=== PATIENT | male | born 1970 | race Caucasian/White ===

== ENCOUNTER 2016-06-03 01:16 | Inpatient (IN) | payer OTHER ==
[2016-06-03] MEDS ORDERED: KETOROLAC TROMETHAMINE 30 MG/1 ML VIAL ONE (01:30)
[2016-06-03] MEDS ORDERED: ONDANSETRON 4 MG/2 ML VIAL ONE (01:30)
--- NOTE | 2016-06-03 01:30 | PDOC ---
History of Present Illness - General Stated Complaint: ABD PAIN, VOMITING Time Seen by Provider: 06/03/16 01:23 - History of Present Illness Initial Comments: 06/03/16 01:41 CHIEF COMPLAINT: R abdominal pain HISTORY OF PRESENT ILLNESS: 45 yo M with hx of kidney stones presents to ED with pain to R abdomen/flank that began one hour prior to arrival. Patient reports that he vomited one time on arrival to ED. Patient states he has a history of kidney stones and was most recently diagnosed with one two years ago. He states that he has an appointment with his urologist, Dr. Jose Armando Bernard tomorrow. He reports that earlier today when he was urinating he did notice some dark blood in his urine, and that this pain feels like a previous kidney stone. No recent travel or sick contacts. PAST MEDICAL HISTORY: Denies past medical history FAMILY HISTORY: Denies SOCIAL HISTORY: Denies tobacco, alcohol, illicit drug use. SURGICAL HISTORY: Denies ALLERGIES: No known drug allergies REVIEW OF SYSTEMS General/Constitutional: Denies fever or chills. Denies weakness, weight change. HEENT: Denies change in vision. Denies ear pain or discharge. Denies sore throat. Cardiovascular: Denies chest pain or shortness of breath. Respiratory: Denies cough, wheezing, or hemoptysis. Gastrointestinal: One episode of vomiting. diarrhea or constipation. Denies rectal bleeding. Genitourinary: Hematuria, difficulty with urination. Musculoskeletal: Denies joint or muscle swelling or pain. Denies neck or back pain. Skin and breasts: Denies rash or easy bruising. Neurologic: Denies headache, vertigo, loss of consciousness, or loss of sensation. PHYSICAL EXAM General Appearance: Well-appearing, appropriately dressed. No apparent distress , no intoxication. HEENT: EOMI, PERRLA, normal ENT inspection, normal voice, TMs normal, pharynx normal. No conjunctival pallor. No photophobia, scleral icterus. Neck: Supple. Trachea midline. No tenderness, rigidity, carotid bruit, stridor , lymphadenopathy, or thyromegaly. Respiratory/Chest: Lungs CTAB. No shortness of breath, chest tenderness, respiratory distress, accessory muscle use. No crackles, rales, rhonchi, stridor , wheezing, dullness Cardiovascular: RRR. S1, S2. No JVD, murmur, bradycardia, tachycardia. Vascular Pulses: Dorsalis-Pedis (R): 2+, Dorsalis-Pedis (L): 2+ Gastrointestinal/Abdominal: Normal bowel sounds. Abdomen soft, non-distended. No tenderness or rebound tenderness. No organomegaly, pulsatile mass, guarding , hernia, hepatomegaly, splenomegaly. Musculoskeletal/Extremities: R CVA tenderness. Normal inspection. FROM of all extremities, normal capillary refill. Pelvis Stable. No CVA tenderness. No tenderness to extremities, pedal edema, swelling, erythema or deformity. Integumentary: Appropriate color, dry, warm. No cyanosis, erythema, jaundice or rash Neurologic: head piece assembler II-XII intact. Fully oriented, alert. Appropriate mood/affect. Motor strength 5/5. No appreciable EOM palsy, facial droop or sensory deficit. 06/03/16 01:58 Past History - Past Medical History Allergies/Adverse Reactions: Allergies Allergy/AdvReac Type Severity Reaction Status Date / Time No Known Allergies Allergy Verified 06/03/16 01:33 Home Medications: Ambulatory Orders NK [No Known Home Medication] 06/03/16 ED Treatment Course - LABORATORY CBC & Chemistry Diagram: 06/03/16 01:30 06/03/16 01:30 Medical Decision Making - Medical Decision Making 06/03/16 02:57 45 yo M with hx of kidney stones presents to ED with pain to R abdomen/flank that began one hour prior to arrival. Patient reports that he vomited one time on arrival to ED. -IVF -30 mg Toradol IV -UA, UCx -Spiral CT Patient reassessed; still c/o of pain after administration of Toradol. -4 mg morphine IV Labs: WBC 18.5, UA: +blood CT results: Findings: The lung bases are clear. Hepatic steatosis is noted with sparing around the gallbladder fossa. The upper abdominal viscera are otherwise normal unenhanced appearance. The adrenal glands are unremarkable. Nonobstructing calculi are noted in both kidneys. The left kidney is otherwise unremarkable. There is mild fullness of the right renal collecting system and proximal ureter. An obstructing 5 x 3 mm calculus is present in the proximal right ureter (image 89). The gastrointestinal tract does not appear obstructed. No thickened or dilated bowel is seen. Colonic diverticulosis is noted without evidence of diverticulitis. The appendix is not identified. No cecal thickening or pericecal inflammatory changes are seen. There is no mesenteric infiltration. The urinary bladder, prostate and seminal vesicles are unremarkable. No abdominal or pelvic adenopathy is seen. No lytic or blastic destructive osseous lesions are seen. Impression: No inflammatory process identified in the abdomen or pelvis. No abdominal mass, adenopathy or collection seen. Read by Joshua Plasencia M.D. Patient continues to c/o pain -4 mg morphine IV Patient continues to c/o pain -0.5 mg Dilaudid IV Will admit to hospitalist for intractable pain secondary to kidney stones and for urology consult in AM. Discussed case with hospitalist attending MD Lindsey, who accepts patient to inpatient services. *DC/Admit/Observation/Transfer Diagnosis at time of Disposition: Renal calculus or stone - Discharge Dispostion Admit: Yes
[2016-06-03] MEDS ORDERED: ONDANSETRON 4 MG/2 ML VIAL IVPUSH ONE (01:33)
[2016-06-03] MEDS ORDERED: KETOROLAC TROMETHAMINE 30 MG/1 ML VIAL IVPUSH ONE (01:34)
[2016-06-03 01:41] VITALS: BMI 35.4
[2016-06-03 01:48] LABS: EOSINOPHIL 10.8 % (0-4.5); MCH 27.1 pg (25.7-33.7); MCHC 32.9 g/dl (32.0-35.9); MEAN CELL VOLUME 82.3 fl (80-96); MEAN PLT VOLUME 8.3 fl (7.5-11.1); NEUTROPHILS 49.6 % (42.8-82.8); PLATELET COUNT 260 K/MM3 (134-434); RDW 14.2 % (11.9-15.9); WHITE BLOOD COUNT 18.5 K/mm3 (4.0-10.0)
[2016-06-03] MEDS ORDERED: morphine CARPU-JECT 4 MG/1 ML DISP.SYRIN ONE ×4 (01:53→09:47)
[2016-06-03] MEDS ORDERED: morphine CARPU-JECT 4 MG/1 ML DISP.SYRIN IVPUSH ONE ×2 (01:56→02:56)
[2016-06-03 02:20] LABS: CREATININE 1.1 mg/dL (0.7-1.3)
[2016-06-03 02:33] LABS: URINE APPEARANCE SLCLOUDY; URINE BILIRUBIN NEGATIVE (NEGATIVE); URINE GLUCOSE (UA) 1+ (NEGATIVE); URINE KETONE NEGATIVE (NEGATIVE); URINE NITRITE NEGATIVE (NEGATIVE); URINE UROBILINOGEN NEGATIVE E.U./dl (0.2-1.0)
[2016-06-03 02:47] LABS: URINE BLOOD 3+ (NEGATIVE); URINE LEUK ESTERASE TRACE (NEGATIVE); URINE PROTEIN 1+ (NEGATIVE)
[2016-06-03 02:49] LABS: URINE COLOR YELLOW; URINE RBC 1420 /hpf (0-3); URINE WBC 11 /hpf (3-5)
[2016-06-03] MEDS ORDERED: TAMSULOSIN HCL 0.4 MG CAP.ER.24H (FP) PO ONE ×2 (02:49→10:34)
--- NOTE | 2016-06-03 02:54 | PDOC ---
*Physical Exam - Vital Signs Last Vital Signs Temp Pulse Resp BP Pulse Ox 98.1 F 74 26 H 145/104 99 06/03/16 01:39 06/03/16 01:39 06/03/16 01:39 06/03/16 01:39 06/03/16 01:39 ED Treatment Course - LABORATORY CBC & Chemistry Diagram: 06/03/16 07:20 06/03/16 07:20 - ADDITIONAL ORDERS Additional order review: Laboratory Results 06/03/16 06/03/16 02:28 01:30 Sodium 141 Potassium 4.1 Chloride 102 Carbon Dioxide 27 Anion Gap 12 BUN 16 Creatinine 1.1 Random Glucose 165 H Calcium 9.0 Urine Color Yellow Urine Appearance Slcloudy Urine pH 8.0 Ur Specific [place] 1.014 Urine Protein 1+ H Urine Glucose (UA) 1+ H Urine Ketones Negative Urine Blood 3+ H Urine Nitrite Negative Urine Bilirubin Negative Urine Urobilinogen Negative Ur Leukocyte Esterase Trace H Urine RBC 1420 Urine WBC 11 06/03/16 01:30 RBC 5.50 MCV 82.3 MCHC 32.9 RDW 14.2 MPV 8.3 Neutrophils % 49.6 Lymphocytes % 30.9 Monocytes % 7.7 Eosinophils % 10.8 H Basophils % 1.0 - Medications Given in the ED: ED Medications Discontinued Medications Generic Name Dose Route Start Last Admin Trade Name Susan PRN Reason Stop Dose Admin Ketorolac Tromethamine 30 mg 06/03/16 01:34 06/03/16 01:34 Toradol Injection - IVPUSH 06/03/16 01:35 30 mg NOW ONE Administration Morphine Sulfate 4 mg 06/03/16 01:56 06/03/16 01:57 Morphine Injection - IVPUSH 06/03/16 01:57 4 mg NOW ONE Administration Ondansetron HCl 4 mg 06/03/16 01:33 06/03/16 01:34 Zofran Injection IVPUSH 06/03/16 01:34 4 mg NOW ONE Administration Medical Decision Making - Medical Decision Making 06/03/16 02:54 agree with care from ANUM Ochoa *DC/Admit/Observation/Transfer Diagnosis at time of Disposition: Renal calculus or stone
[2016-06-03] MEDS ORDERED: TAMSULOSIN HCL 0.4 MG CAP.ER.24H (FP) ONE ×2 (03:06→09:22)
[2016-06-03] MEDS ORDERED: HYDROmorphone HCL CARPU-JECT 1 MG/1 ML DISP.SYRIN IVPUSH ONE ×2 (03:19→04:01)
[2016-06-03] MEDS ORDERED: HYDROmorphone HCL CARPU-JECT 1 MG/1 ML DISP.SYRIN ONE (03:22)
--- NOTE | 2016-06-03 03:51 | PN ---
<Alma Delia Lindsey - Last Filed: 06/03/16 03:51> Teaching Attending Note Name of Resident: Oscar Llanes ATTENDING PHYSICIAN STATEMENT I saw and evaluated the patient. I reviewed the resident's note and discussed the case with the resident. I agree with the resident's findings and plan as documented. SUBJECTIVE: OBJECTIVE: ASSESSMENT AND PLAN: <Nghia Pireshel - Last Filed: 06/03/16 04:36> Teaching Attending Note ATTENDING PHYSICIAN STATEMENT I saw and evaluated the patient. I reviewed the resident's note and discussed the case with the resident. I agree with the resident's findings and plan as documented. SUBJECTIVE: The patient is a 45 yo M with a PMHx of nephrolithiasis presents to the ED with R flank pain and abdominal pain approximately one hour prior to arrival to the ED.Patient also had one episode of vomiting. Patient was supposed to see Dr. Bernard tomorrow. Patient also notes dark blood upon urination earlier today OBJECTIVE: Last Vital Signs Temp Pulse Resp BP Pulse Ox 98.1 F 76 22 153/102 96 06/03/16 01:39 06/03/16 03:18 06/03/16 03:18 06/03/16 03:18 06/03/16 03:18 GEN: NAD HEENT: NCAT, PERRL CARD: RRR, S1 S2 RESP: CTAB ABD: NT, BWS x4. + R CVA tenderness. EXT: - CCE CBCD WBC 18.5 K/mm3 (4.0-10.0) H 06/03/16 01:30 RBC 5.50 M/mm3 (4.00-5.60) 06/03/16 01:30 Hgb 14.9 GM/dL (11.7-16.9) 06/03/16 01:30 Hct 45.3 % (35.4-49) 06/03/16 01:30 MCV 82.3 fl (80-96) 06/03/16 01:30 MCHC 32.9 g/dl (32.0-35.9) 06/03/16 01:30 RDW 14.2 % (11.9-15.9) 06/03/16 01:30 Plt Count 260 K/MM3 (134-434) 06/03/16 01:30 MPV 8.3 fl (7.5-11.1) 06/03/16 01:30 CMP Sodium 141 mmol/L (136-145) 06/03/16 01:30 Potassium 4.1 mmol/L (3.5-5.1) 06/03/16 01:30 Chloride 102 mmol/L (98-107) 06/03/16 01:30 Carbon Dioxide 27 mmol/L (21-32) 06/03/16 01:30 Anion Gap 12 (8-16) 06/03/16 01:30 BUN 16 mg/dL (7-18) 06/03/16 01:30 Creatinine 1.1 mg/dL (0.7-1.3) 06/03/16 01:30 Calcium 9.0 mg/dL (8.5-10.1) 06/03/16 01:30 Imaging: Abdomen/Pelvis CT Findings: The lung bases are clear. Hepatic steatosis is noted with sparing around the gallbladder fossa. The upper abdominal viscera are otherwise normal unenhanced appearance. The adrenal glands are unremarkable. Nonobstructing calculi are noted in both kidneys. The left kidney is otherwise unremarkable. There is mild fullness of the right renal collecting system and proximal ureter. An obstructing 5 x 3 mm calculus is present in the proximal right ureter (image 89). The gastrointestinal tract does not appear obstructed. No thickened or dilated bowel is seen. Colonic diverticulosis is noted without evidence of diverticulitis. The appendix is not identified. No cecal thickening or pericecal inflammatory changes are seen. There is no mesenteric infiltration. The urinary bladder, prostate and seminal vesicles are unremarkable. No abdominal or pelvic adenopathy is seen. No lytic or blastic destructive osseous lesions are seen. 0Impression: No inflammatory process identified in the abdomen or pelvis. No abdominal mass, adenopathy or collection seen. Read by Joshua Plasencia M.D. ASSESSMENT AND PLAN: The patient is a 45 yo M with PMhx of nephrolithiasis who presents with sepsis. 1.) Sepsis secondary to UTI/nephrolithiasis -Zosyn -Zofran PRN nausea -Urology consult -Pain control -Flomax -Urine strain -Blood Culture -Urine culture -IVF -Lactic Acid 2. DVT PPx -Low risk -SCDs Patient will be admitted to Med Surg.
[2016-06-03] MEDS ORDERED: PIPERACILLIN/TAZOB 3.375 GM/50 ML PRE-DOCKED IVPB ONE (04:47)
[2016-06-03] MEDS ORDERED: SODIUM CHLORIDE 1,000 ML IV SCH (05:00)
[2016-06-03] MEDS ORDERED: ONDANSETRON 4 MG/2 ML VIAL IVPB PRN (05:00)
--- NOTE | 2016-06-03 05:00 | HP ---
CHIEF COMPLAINT: r flank pain PCP: In [facility] HISTORY OF PRESENT ILLNESS: 45 y/o M w/PMH of kidney stones (s/p lithotripsy 3 times) presents to ER with R flank pain which started at approximately 11 pm 06/02/16. Pt's niece present at bedside and translated for us. The pain was rated as "more than 10/10" and he noted blood in the urine since yesterday. He has had kidney stones in the past and felt like this pain was similar to the episodes in the past. He denies any burning pain with urination. He was to see Dr. Bernard tomorrow for a regular check up. He had one episode of vomiting after arriving in the ER due to pain. Currently he feels "alright". Denies any fevers, chills, CP, SOB, light -headedness, dizziness. Does not take any medications. Sees his PCP in [place] once a year. ER course was notable for: (1) CT abd, pain control w/toradol, morphine, dilaudid (2) (3) Recent Travel: Travels frequently back and forth from . Came from 1 month ago last. PAST MEDICAL HISTORY: kidney stones (s/p 3 lithotripsies) PAST SURGICAL HISTORY: appendectomy as child Social History: Smoking: denies Alcohol: socially Drugs: denies Family History: Mother: HTN Allergies No Known Allergies Allergy (Verified 06/03/16 01:33) HOME MEDICATIONS: Home Medications Medication Instructions Recorded NK [No Known Home Medication] 06/03/16 REVIEW OF SYSTEMS CONSTITUTIONAL: Absent: fever, chills, diaphoresis, generalized weakness, malaise, loss of appetite, weight change HEENT: Absent: rhinorrhea, nasal congestion, throat pain, throat swelling, difficulty swallowing, mouth swelling, ear pain, eye pain, visual changes CARDIOVASCULAR: Absent: chest pain, syncope, palpitations, irregular heart rate, lightheadedness , peripheral edema RESPIRATORY: Absent: cough, shortness of breath, dyspnea with exertion, orthopnea, wheezing, stridor, hemoptysis GASTROINTESTINAL: R abd/flank pain, vomiting Absent: abdominal distension, diarrhea, constipation, melena, hematochezia GENITOURINARY: Absent: dysuria, frequency, urgency, hesitancy, hematuria, flank pain, genital pain MUSCULOSKELETAL: Absent: myalgia, arthralgia, joint swelling, back pain, neck pain SKIN: Absent: rash, itching, pallor HEMATOLOGIC/IMMUNOLOGIC: Absent: easy bleeding, easy bruising, lymphadenopathy, frequent infections ENDOCRINE: Absent: unexplained weight gain, unexplained weight loss, heat intolerance, cold intolerance NEUROLOGIC: Absent: headache, focal weakness or paresthesias, dizziness, unsteady gait, seizure, mental status changes, bladder or bowel incontinence PSYCHIATRIC: Absent: anxiety, depression, suicidal or homicidal ideation, hallucinations. PHYSICAL EXAMINATION Vital Signs - 24 hr 06/03/16 06/03/16 01:39 03:18 Temperature 98.1 F Pulse Rate 74 Pulse Rate [ 76 Right] Respiratory 26 H 22 Rate Blood Pressure 145/104 Blood Pressure 153/102 [Left Arm] O2 Sat by Pulse 99 96 Oximetry (%) GENERAL: Awake, alert, and fully oriented, in no acute distress. HEAD: Normal with no signs of trauma. EYES: extraocular movements intact, sclera anicteric, conjunctiva clear. No lid lag. EARS, NOSE, THROAT: Ears normal, nares patent. Moist mucous membranes. NECK: Normal range of motion LUNGS: Breath sounds equal, clear to auscultation bilaterally. No wheezes, and no crackles. No accessory muscle use. HEART: Regular rate and rhythm, normal S1 and S2 without murmur, rub or gallop. ABDOMEN: Soft, nontender, not distended, normoactive bowel sounds, no guarding, no rebound, no masses. No hepatomegaly or splenomegaly. MUSCULOSKELETAL: Normal range of motion at all joints. No bony deformities or tenderness. +R CVA tenderness LOWER EXTREMITIES: 2+ pulses, warm, well-perfused. No calf tenderness. No peripheral edema. NEUROLOGICAL: Normal speech. Gait not observed. PSYCHIATRIC: Cooperative. Good eye contact. Appropriate mood and affect. SKIN: Warm, dry, normal turgor, no rashes or lesions noted, normal capillary refill. Laboratory Results - last 24 hr 06/03/16 06/03/16 06/03/16 01:30 01:30 02:28 WBC 18.5 H RBC 5.50 Hgb 14.9 Hct 45.3 MCV 82.3 MCHC 32.9 RDW 14.2 Plt Count 260 MPV 8.3 Neutrophils % 49.6 Lymphocytes % 30.9 Monocytes % 7.7 Eosinophils % 10.8 H Basophils % 1.0 Sodium 141 Potassium 4.1 Chloride 102 Carbon Dioxide 27 Anion Gap 12 BUN 16 Creatinine 1.1 Random Glucose 165 H Calcium 9.0 Urine Color Yellow Urine Appearance Slcloudy Urine pH 8.0 Ur Specific [place] 1.014 Urine Protein 1+ H Urine Glucose (UA) 1+ H Urine Ketones Negative Urine Blood 3+ H Urine Nitrite Negative Urine Bilirubin Negative Urine Urobilinogen Negative Ur Leukocyte Esterase Trace H Urine RBC 1420 Urine WBC 11 Imaging: CT abd: Prelim Read: The lung bases are clear. Hepatic steatosis is noted with sparing around the gallbladder fossa. The upper abdominal viscera are otherwise normal unenhanced appearance. The adrenal glands are unremarkable. Nonobstructing calculi are noted in both kidneys. The left kidney is otherwise unremarkable. There is mild fullness of the right renal collecting system and proximal ureter. An obstructing 5 x 3 mm calculus is present in the proximal right ureter (image 89). The gastrointestinal tract does not appear obstructed. No thickened or dilated bowel is seen. Colonic diverticulosis is noted without evidence of diverticulitis. The appendix is not identified. No cecal thickening or pericecal inflammatory changes are seen. There is no mesenteric infiltration. The urinary bladder, prostate and seminal vesicles are unremarkable. No abdominal or pelvic adenopathy is seen. No lytic or blastic destructive osseous lesions are seen. Active Medications Sodium Chloride (Normal Saline -) 1,000 mls @ 150 mls/hr IV ASDIR [facility] Morphine Sulfate (Morphine Injection -) 4 mg IVPUSH Q6H PRN PRN Reason: PAIN Ondansetron HCl (Zofran Injection) 4 mg IVPB Q4H PRN PRN Reason: NAUSEA AND/OR VOMITING Tamsulosin HCl (Flomax -) 0.4 mg PO DAILY@0830 [facility] ASSESSMENT/PLAN: 45 y/o M w/PMH of kidney stones (s/p lithotripsy 3 times) presents to ER with R flank pain. Admitted for sepsis secondary to UTI. -Sepsis secondary to UTI -WBC 18.5, tachypneic on presentation, source of infection - UTI -UA trace LE -zosyn one time; ID consulted (Dr. Lovell) -NS @ 150 ml/hr -f/u lactic acid, UCx, BCx -Nephrolithiasis -b/l non-obstructing renal calculi as seen on CT -R ureter 5 mm stone, obstructing as seen on CT -Dr. Lester urology consulted -NS @ 150 ml/hr -pain control w/morphine 4mg iv q6h prn for pain -nausea from pain: zofran 4mg iv q4h prn for nausea -flomax 0.4mg po qd -Hyperglycemia -A1C added on, f/u -DVT ppx -SCDs -FEN -NS @ 150 ml/hr -electrolytes wnl -Dispo: -Admit to M/S Problem List - Problem (1) Renal calculus or stone Code(s): N20.0 - CALCULUS OF KIDNEY (2) Sepsis Code(s): A41.9 - SEPSIS, UNSPECIFIED ORGANISM (3) UTI (urinary tract infection) Code(s): N39.0 - URINARY TRACT INFECTION, SITE NOT SPECIFIED (4) Hyperglycemia Code(s): R73.9 - HYPERGLYCEMIA, UNSPECIFIED (5) Ureteral obstruction, right Code(s): N13.5 - CROSSING VESSEL AND STRICTURE OF URETER W/O HYDRONEPHROSIS Visit type - Emergency Visit Emergency Visit: Yes ED Registration Date: 06/03/16 Care time: The patient presented to the Emergency Department on the above date and was hospitalized for further evaluation of their emergent condition. - New Patient This patient is new to me today: Yes Date on this admission: 06/03/16 - Critical Care Critical Care patient: No
[2016-06-03] MEDS ORDERED: PIPERACILLIN/TAZOB 3.375 GM 50 ML IVPB ONE (05:04)
[2016-06-03] MEDS: morphine CARPU-JECT 4 MG/1 ML DISP.SYRIN IVPUSH PRN ×4 (06:33→22:51)
[2016-06-03 08:16] LABS: BASOPHIL 0.6 % (0-2.0); MCHC 32.4 g/dl (32.0-35.9); MEAN CELL VOLUME 83.4 fl (80-96); MEAN PLT VOLUME 8.1 fl (7.5-11.1); NEUTROPHILS 77.1 % (42.8-82.8); PLATELET COUNT 227 K/MM3 (134-434); RDW 13.9 % (11.9-15.9); WHITE BLOOD COUNT 15.3 K/mm3 (4.0-10.0)
[2016-06-03] MEDS ORDERED: TAMSULOSIN HCL 0.4 MG CAP.ER.24H (FP) PO SCH (08:30)
[2016-06-03] MEDS ORDERED: CEFTRIAXONE 50 ML ONE (09:22)
[2016-06-03] MEDS: cefTRIAXone 1 GM/50 ML BAG (PRE-DOCKED) IVPB SCH (09:25)
[2016-06-03 09:26] LABS: ALBUMIN 3.5 g/dl (3.4-5.0); CALCIUM 8.1 mg/dL (8.5-10.1)
[2016-06-03 09:28] LABS: CREATININE 1.2 mg/dL (0.7-1.3)
[2016-06-03] MEDS ORDERED: CEFTRIAXONE 1 GM in DEXTROSE 5%-WATER - 50 ML IVPB SCH (10:00)
[2016-06-03] MEDS: SODIUM CHLORIDE 1,000 ML IV SCH (10:54)
--- NOTE | 2016-06-03 12:48 | EKG ---
Test Reason : Blood Pressure : / mmHG Vent. Rate : 073 BPM Atrial Rate : 073 BPM P-R Int : 158 ms QRS Dur : 090 ms QT Int : 406 ms P-R-T Axes : 056 007 -06 degrees QTc Int : 447 ms NORMAL SINUS RHYTHM NONSPECIFIC T WAVE ABNORMALITY ABNORMAL ECG WHEN COMPARED WITH ECG OF 29-JAN-2008 14:23, NO SIGNIFICANT CHANGE WAS FOUND Confirmed by MALINDA VARNER MD ([id number]) on 06/03/2016 12:47:46 PM Referred By: Confirmed By:MALINDA VARNER MD
--- NOTE | 2016-06-03 13:47 | CONSULT ---
Consult - text type - Consultation Consultation Note: 45 yo male w 2 days left flank pain nausea no chills or sweats Voiding well T 98 HR 78 bp 154/98 Mod left cvat Abd non distended Nl male no signs of clinical SIRS wbc improving Analgesics IVF Cont abx If does not pass consider stent Will follow If signs of infection arise contact immediately
--- NOTE | 2016-06-03 14:44 | PN ---
Physical Exam: SUBJECTIVE: Patient seen and examined at bedside OBJECTIVE: Vital Signs Period Temp Pulse Resp BP Sys/Laura Pulse Ox Last 24 Hr 72-80 14-18 150-154/98-100 94-96 GENERAL: The patient is awake, alert, and fully oriented, in no acute distress. ecuadorean speaking LUNGS: Breath sounds equal, clear to auscultation bilaterally, no wheezes, no crackles, no accessory muscle use. HEART: Regular rate and rhythm, S1, S2 without murmur, rub or gallop. ABDOMEN: Soft, nontender, nondistended, normoactive bowel sounds. right CVA tenderness NEUROLOGICAL: Cranial nerves II through XII grossly intact. Normal speech, gait not observed. Laboratory Results - last 24 hr 06/03/16 06/03/16 06/03/16 04:32 07:20 07:20 WBC 15.3 H RBC 5.05 Hgb 13.7 Hct 42.2 MCV 83.4 MCHC 32.4 RDW 13.9 Plt Count 227 MPV 8.1 Neutrophils % 77.1 D Lymphocytes % 12.4 D Monocytes % 7.9 Eosinophils % 2.0 D Basophils % 0.6 Sodium Potassium Chloride Carbon Dioxide Anion Gap BUN Creatinine Random Glucose Hemoglobin A1c % 7.3 H Lactic Acid 1.151 Calcium Albumin 06/03/16 07:20 WBC RBC Hgb Hct MCV MCHC RDW Plt Count MPV Neutrophils % Lymphocytes % Monocytes % Eosinophils % Basophils % Sodium 141 Potassium 4.4 Chloride 105 Carbon Dioxide 24 Anion Gap 12 BUN 14 Creatinine 1.2 Random Glucose 155 H Hemoglobin A1c % Lactic Acid Calcium 8.1 L Albumin 3.5 Active Medications Generic Name Dose Route Start Last Admin Trade Name Susan PRN Reason Stop Dose Admin Ceftriaxone Sodium 1 gm 06/03/16 10:00 06/03/16 09:25 Rocephin 1gm Ivpb (Pre-Docked) IVPB 1 gm DAILY EBONY Administration Heparin Sodium (Porcine) 5,000 unit 06/03/16 22:00 Heparin - SQ BID EBONY Sodium Chloride 1,000 mls @ 100 mls/hr 06/03/16 10:35 06/03/16 10:54 Normal Saline - IV 100 mls/hr ASDIR EBONY Administration Insulin Aspart 1 vial 06/03/16 16:30 Novolog Vial Sliding Scale - SQ ACHS [facility] Protocol Morphine Sulfate 4 mg 06/03/16 04:48 06/03/16 09:44 Morphine Injection - IVPUSH 4 mg Q6H PRN Administration PAIN Ondansetron HCl 4 mg 06/03/16 05:00 Zofran Injection IVPB Q4H PRN NAUSEA AND/OR VOMITING Tamsulosin HCl 0.8 mg 06/03/16 10:34 Flomax - PO DAILY@0830 [facility] ASSESSMENT/PLAN: 45M with history of recurrent kidney stones s/p lithotripsy x3 in the past presents to the ED with right flank pain found to have an obstructing 6mm ureteral stone with hydronephrosis. Ureterolithiasis/UTI: Patient septic on admission with elevated leukocytosis and tachypnea from UTI seen by urology will attempt to pass stone first if patient worsens or becomes septic will call urology for STAT stone extraction/stent to do stent if patient does not pass stone Continue rocephin f/u urine culture f/u blood cultures Hyoerglycemia: patient has HbA1C of 7.3 new diagnosis of diabetes mellitus start fingersticks for BGM ISS Discharge on metformin and follow up with PMD ophthalmology and podiatry FEN: NS @ 100ml/hr no electrolyte issues Diabetic diet--> NPO past midnight in case patient needs procedure PPx: HSQ/SCDs no GI PPx needed Ambulate Visit type - Emergency Visit Emergency Visit: Yes ED Registration Date: 06/03/16 Care time: The patient presented to the Emergency Department on the above date and was hospitalized for further evaluation of their emergent condition. - New Patient This patient is new to me today: Yes Date on this admission: 06/03/16 - Critical Care Critical Care patient: No
[2016-06-03] MEDS ORDERED: INSULIN SLIDING SCALE (NOVOLOG) 1 VIAL SQ SCH (14:45)
[2016-06-03] MEDS: INSULIN SLIDING SCALE (NOVOLOG) 1 VIAL SQ SCH ×2 (17:35→21:20)
[2016-06-03] MEDS: oxyCODONE HCL 5 MG TABLET PO PRN (18:00)
--- NOTE | 2016-06-03 18:56 | PN ---
Teaching Attending Note Name of Resident: Sy Mcpherson ATTENDING PHYSICIAN STATEMENT I saw and evaluated the patient. I reviewed the resident's note and discussed the case with the resident. I agree with the resident's findings and plan as documented. SUBJECTIVE: no fever or chills , has R flank pain . no dysuria OBJECTIVE: NAD CV ; RRR Lunsg : CTAB ext : no edema ABd: soft, NT, ND , NL BS, R CVA tenderness ASSESSMENT AND PLAN: 45 y/o man with h/o recurrent nephrolithiasis , who rpesented with Abd pain , R flank pain and was found to have R obstructing ureteral stone with R hydronephrosis 1- R obstructing ureteral stone with R hydronephrosis : - strain all urine - IVF , decrease rate - increase frequency of morphine - abx for now as long as the obstruction persists . follow urine cx . monitor WBC - if no passage , will need intervention 2- new onset DM II: no previous diagnosis . A1c 7.3 - instructed of life style changes - will start on metformin as out pt - need to establish care with PCP [facility]LOC
[2016-06-03] MEDS: HEPARIN NA (PORCINE) 5,000 UNITS/ML 1ML VIAL SQ SCH (21:17)
[2016-06-04] MEDS: SODIUM CHLORIDE 1,000 ML IV SCH ×3 (06:20→15:58)
[2016-06-04 08:30] LABS: MCHC 32.8 g/dl (32.0-35.9); MEAN CELL VOLUME 82.2 fl (80-96); MEAN PLT VOLUME 7.9 fl (7.5-11.1); PLATELET COUNT 224 K/MM3 (134-434); RDW 13.9 % (11.9-15.9); WHITE BLOOD COUNT 11.5 K/mm3 (4.0-10.0)
[2016-06-04 09:06] LABS: CALCIUM 8.5 mg/dL (8.5-10.1); CREATININE 0.9 mg/dL (0.7-1.3)
[2016-06-04] MEDS ORDERED: INSULIN (NOVOLOG) ASPART 100 UNITS/ML 10ML VIAL ONE ×3 (09:58→21:30)
[2016-06-04] MEDS: TAMSULOSIN HCL 0.4 MG CAP.ER.24H (FP) PO SCH (10:02)
[2016-06-04] MEDS: HEPARIN NA (PORCINE) 5,000 UNITS/ML 1ML VIAL SQ SCH ×2 (10:03→21:35)
[2016-06-04] MEDS: cefTRIAXone 1 GM/50 ML BAG (PRE-DOCKED) IVPB SCH (10:03)
[2016-06-04] MEDS: INSULIN SLIDING SCALE (NOVOLOG) 1 VIAL SQ SCH ×4 (10:12→21:33)
--- NOTE | 2016-06-04 12:03 | PN ---
Progress Note (short form) - Note Progress Note: afebrile had pain last 12 hrs ago wbc 11 blood cultures negative KUB-no stone seen cont IV hydration repeat WBC in am
[2016-06-04] MEDS: oxyCODONE HCL 5 MG TABLET PO PRN (13:20)
--- NOTE | 2016-06-04 13:46 | PN ---
Physical Exam: SUBJECTIVE: Patient seen and examined at bedside patient slept well had no pain since 10pm last night was for discharge but then told me he is having pain again OBJECTIVE: Vital Signs Period Temp Pulse Resp BP Sys/Laura Pulse Ox Last 24 Hr 97.4 F-98.1 F 73-86 18-20 116-148/61-95 94-97 GENERAL: The patient is awake, alert, and fully oriented, in no acute distress. welsh speaking LUNGS: Breath sounds equal, clear to auscultation bilaterally, no wheezes, no crackles, no accessory muscle use. HEART: Regular rate and rhythm, S1, S2 without murmur, rub or gallop. ABDOMEN: Soft, nontender, nondistended, normoactive bowel sounds. mild right CVA tenderness NEUROLOGICAL: Cranial nerves II through XII grossly intact. Normal speech, gait not observed. Laboratory Results - last 24 hr 06/03/16 06/03/16 06/04/16 17:31 21:19 06:19 WBC RBC Hgb Hct MCV MCHC RDW Plt Count MPV Sodium Potassium Chloride Carbon Dioxide Anion Gap BUN Creatinine POC Glucometer 102 123 115 Random Glucose Calcium 06/04/16 06/04/16 06/04/16 07:30 07:30 10:11 WBC 11.5 H RBC 5.01 Hgb 13.5 Hct 41.2 MCV 82.2 MCHC 32.8 RDW 13.9 Plt Count 224 MPV 7.9 Sodium 143 Potassium 3.9 Chloride 107 Carbon Dioxide 26 Anion Gap 10 BUN 13 Creatinine 0.9 D POC Glucometer 162 Random Glucose 155 H Calcium 8.5 Active Medications Generic Name Dose Route Start Last Admin Trade Name Rickieq PRN Reason Stop Dose Admin Heparin Sodium (Porcine) 5,000 unit 06/03/16 22:00 06/04/16 10:03 Heparin - SQ 5,000 unit BID EBONY Administration Sodium Chloride 1,000 mls @ 100 mls/hr 06/03/16 10:35 06/04/16 10:03 Normal Saline - IV Not Given ASDIR [facility] Insulin Aspart 1 vial 06/03/16 16:30 06/04/16 10:12 Novolog Vial Sliding Scale - SQ Not Given ACHS [facility] Protocol Morphine Sulfate 4 mg 06/03/16 16:02 06/03/16 22:51 Morphine Injection - IVPUSH 4 mg Q3H PRN Administration pain 6-10 Ondansetron HCl 4 mg 06/03/16 05:00 Zofran Injection IVPB Q4H PRN NAUSEA AND/OR VOMITING Oxycodone HCl 5 mg 06/03/16 16:02 06/04/16 13:20 Roxicodone - PO 5 mg Q6H PRN Administration pain-give this first Tamsulosin HCl 0.8 mg 06/03/16 10:34 06/04/16 10:02 Flomax - PO 0.8 mg DAILY@0830 EBONY Administration ASSESSMENT/PLAN: 45M with history of recurrent kidney stones s/p lithotripsy x3 in the past presents to the ED with right flank pain found to have an obstructing 6mm ureteral stone with hydronephrosis. Ureterolithiasis/UTI: Patient septic on admission with elevated leukocytosis and tachypnea from UTI seen by urology will attempt to pass stone first if patient worsens or becomes septic will call urology for STAT stone extraction/stent to do stent if patient does not pass stone urology told patient they will do lithotripsy on Wednesday at [facility] stop rocephin f/u urine culture - negative f/u blood cultures- negative to date pain control with oxycodone stop morphine IV Hyoerglycemia: patient has HbA1C of 7.3 new diagnosis of diabetes mellitus start fingersticks for BGM ISS Discharge on metformin and follow up with PMD ophthalmology and podiatry FEN: NS @ 100ml/hr no electrolyte issues Diabetic diet PPx: HSQ/SCDs no GI PPx needed Ambulate Visit type - Emergency Visit Emergency Visit: Yes ED Registration Date: 06/03/16 Care time: The patient presented to the Emergency Department on the above date and was hospitalized for further evaluation of their emergent condition. - New Patient This patient is new to me today: No - Critical Care Critical Care patient: No - Discharge Referral Referred to [facility] Med P.C.: No
[2016-06-04] MEDS: morphine CARPU-JECT 4 MG/1 ML DISP.SYRIN IVPUSH PRN (13:47)
--- NOTE | 2016-06-04 13:54 | PN ---
Teaching Attending Note Name of Resident: Sy Mcpherson ATTENDING PHYSICIAN STATEMENT I saw and evaluated the patient. I reviewed the resident's note and discussed the case with the resident. I agree with the resident's findings and plan as documented. SUBJECTIVE: evaluated at 11 Am . no fever or chills, no abd pain atthat time. When pt was evaluated by resident at 1 pm , he complained of abd pain OBJECTIVE: NAD CV: RRR Lungs : CTAB Ext : no edema Abd : soft, NT, ND , NL BS. A/P : 45 y/o man with h/o recurrent nephrolithiasis , who presented with Abd pain , R flank pain and was found to have R obstructing ureteral stone with R hydronephrosis 1- R obstructing ureteral stone with R hydronephrosis : pain has resolved this am but now returned . KUB did not show any stones , but this might not be accurate . No stone passage was documented - cont IVF - cont flomax - dc morphine and cont oxycodone - no evidence of infection - dc Abx - monitor over night , as his sx recurred. if cont to have pain , will ask urology to intervene 2- new onset DM II: no previous diagnosis . A1c 7.3 - will start on metformin as out pt - need to establish care with PCP Dispo : possible dc tomorrow if no plan for urological procedure
[2016-06-04] MEDS ORDERED: oxyCODONE HCL 5 MG TABLET PO PRN (14:14)
--- NOTE | 2016-06-04 16:02 | HOSP ---
Subjective - Review of Symptoms Events since last encounter: Pt seen again; Abap Developer #[id number] was used ( [employer] ) . his pain has returned in R flank with radiation to R testicle . He does not have N/V . still did not pass the stone will place on toradol will call uro for possible procedure tomorrow will keep as inpt Physical Examination Vital Signs: Vital Signs Temperature 98.1 F 06/04/16 13:49 Pulse Rate 74 06/04/16 13:49 Respiratory Rate 18 06/04/16 13:49 Blood Pressure 140/93 06/04/16 08:00 O2 Sat by Pulse Oximetry (%) 97 06/04/16 08:00 Labs: CBC, BMP 06/04/16 07:30 06/04/16 07:30
[2016-06-04] MEDS: KETOROLAC TROMETHAMINE 15 MG/ML VIAL IVPUSH PRN ×2 (16:30→16:57)
[2016-06-05] MEDS: SODIUM CHLORIDE 1,000 ML IV SCH ×2 (02:06→09:51)
[2016-06-05] MEDS: KETOROLAC TROMETHAMINE 15 MG/ML VIAL IVPUSH PRN (03:07)
[2016-06-05 05:41] VITALS: PULSE 75; TEMP 97.9
[2016-06-05] MEDS: INSULIN SLIDING SCALE (NOVOLOG) 1 VIAL SQ SCH ×2 (06:20→11:30)
[2016-06-05] MEDS ORDERED: INSULIN (NOVOLOG) ASPART 100 UNITS/ML 10ML VIAL ONE (06:26)
[2016-06-05 08:53] LABS: MCH 27.5 pg (25.7-33.7); MCHC 33.6 g/dl (32.0-35.9); MEAN CELL VOLUME 81.8 fl (80-96); MEAN PLT VOLUME 8.2 fl (7.5-11.1); PLATELET COUNT 213 K/MM3 (134-434); RDW 13.7 % (11.9-15.9); WHITE BLOOD COUNT 10.3 K/mm3 (4.0-10.0)
[2016-06-05 09:39] LABS: CALCIUM 8.5 mg/dL (8.5-10.1); CREATININE 0.8 mg/dL (0.7-1.3)
[2016-06-05] MEDS: HEPARIN NA (PORCINE) 5,000 UNITS/ML 1ML VIAL SQ SCH (09:48)
[2016-06-05] MEDS: TAMSULOSIN HCL 0.4 MG CAP.ER.24H (FP) PO SCH (09:48)
[2016-06-05 09:58] VITALS: BP 133/90
--- NOTE | 2016-06-05 10:19 | PN ---
Progress Note (short form) - Note Progress Note: patient is feeling better today he and his would like to have ESWL rather than ULL will discharge today .
--- NOTE | 2016-06-05 13:23 | DS ---
Physical Exam: SUBJECTIVE: Patient seen and examined at bedside feels well ready for discharge OBJECTIVE: Vital Signs Period Temp Pulse Resp BP Sys/Laura Pulse Ox Last 24 Hr 97.9 F-98.4 F 74-81 16-18 133-152/90-94 96 PHYSICAL EXAM GENERAL: The patient is awake, alert, and fully oriented, in no acute distress. guamanian speaking LUNGS: Breath sounds equal, clear to auscultation bilaterally, no wheezes, no crackles, no accessory muscle use. HEART: Regular rate and rhythm, S1, S2 without murmur, rub or gallop. ABDOMEN: Soft, nontender, nondistended, normoactive bowel sounds. no CVA tenderness NEUROLOGICAL: Cranial nerves II through XII grossly intact. Normal speech, gait not observed. LABS Laboratory Results - last 24 hr 06/04/16 06/04/16 06/05/16 15:54 21:32 06:18 WBC RBC Hgb Hct MCV MCHC RDW Plt Count MPV Sodium Potassium Chloride Carbon Dioxide Anion Gap BUN Creatinine POC Glucometer 130 117 115 Random Glucose Calcium 06/05/16 06/05/16 06/05/16 06:30 06:30 11:10 WBC 10.3 H RBC 4.90 Hgb 13.5 Hct 40.1 MCV 81.8 MCHC 33.6 RDW 13.7 Plt Count 213 MPV 8.2 Sodium 142 Potassium 3.8 Chloride 105 Carbon Dioxide 28 Anion Gap 9 BUN 12 Creatinine 0.8 POC Glucometer 112 Random Glucose 121 H D Calcium 8.5 HOSPITAL COURSE: Date of Admission:06/03/16 Date of Discharge: 06/05/16 45M with history of recurrent kidney and ureteral stones presented to the ED with right groin and flank pain found to have an obstructing ureteral stone with mild hydronephrosis. He was admitted for pain control and evaluation by urology. Patient continued to improved daily to the point where he was no longer symptomatic. He was intially treated with antibiotics as he had leukocytosis and antibiotics were stopped once urine culture came back negative. on laboratory assessment he was found to have mild hyperglycemia and HbA1C was 7.3 and patient is now newly diagnosed with diabetes. importance of follow up with a PMD ophthalmology podiatry and medication compliance along with lifestyle modifications were discussed in detail with the patient and his . He will follow up with urology at the office on wednesday06/08/16 for possible ESWL. Stable for discharge. Minutes to complete discharge: 45 Discharge Summary Reason For Visit: RENAL CALCULUS OR STONE INTRACTABLE PAIN Condition: Improved - Instructions Diet, Activity, Other Instructions: if you have any pain go to the nearest emergency room strain all your urine and give any stones to the urologist follow up with urologist in the next 2 days and call for appointment you have diabetes-diagnosed on this admission eat a low carbohydrate low sugar diet take all your medications as prescribed you need a primary care doctor please call [phone] to schedule an appointment with a primary care doctor or call your insurance to see who is in your network you need to see an eye doctor and a foot doctor every year for your diabetes please have your doctor refer you to an hook and eye sewing machine operator and a cone worker drink lots of fluids take ibuprofen over the counter for pain as needed Referrals: Jose Armando Bernard MD [Staff Physician] - 06/08/16 Disposition: HOME - Home Medications Comprehensive Discharge Medication List: Ambulatory Orders Metformin HCl [Metformin HCl ER] 500 mg PO DAILY #30 tab.er.24 06/04/16 Tamsulosin HCl [Flomax -] 0.8 mg PO DAILY@0830 #30 cap 06/04/16 Oxycodone HCl/Acetaminophen [Percocet 5-325 mg Tablet -] 1 tab PO Q4H #20 tablet MDD 6 06/05/16 This patient is new to me today: No Emergency Visit: Yes ED Registration Date: 06/03/16 Care time: The patient presented to the Emergency Department on the above date and was hospitalized for further evaluation of their emergent condition. Critical Care patient: No - Discharge Referral Referred to [facility] Med P.C.: No
--- NOTE | 2016-06-05 18:03 | PN ---
Teaching Attending Note Name of Resident: Sy Mcpherson ATTENDING PHYSICIAN STATEMENT I saw and evaluated the patient. I reviewed the resident's note and discussed the case with the resident. I agree with the resident's findings and plan as documented. SUBJECTIVE: no fever or chills, no abd pain OBJECTIVE: NAD CV: RRR Lungs : CTAB Ext : no edema Abd : soft, NT, ND , NL BS. A/P : 45 y/o man with h/o recurrent nephrolithiasis , who presented with Abd pain , R flank pain and was found to have R obstructing ureteral stone with R hydronephrosis 1- R obstructing ureteral stone with mild R hydronephrosis : no pain today -dc IVF - cont flomax - no evidence of infection - for ESWL as out pt 2- New onset DM II: no previous diagnosis . A1c 7.3 - will start on metformin as out pt - need to establish care with PCP Dispo :dc home
== END 2016-06-05 12:49 | disposition home or self-care (01) | DRG 465 ==
LOC: JER 01:16 → JERBED 03:51 → UNDOADMIN 06:06 → J6S 15:09
PROVIDERS: ADMIT Internal Medicine; ATTEND Internal Medicine
DX: N13.2 Hydronephrosis with renal and ureteral calculous obstruction (principal); E11.9 Type 2 diabetes mellitus without complications; D72.828 Other elevated white blood cell count
CPT/HCPCS: 36415; 71010-TC; 74000-TC; 74176; 80048; 81003; 81015; 82040; 83036; 83605; 85025; 85027; 87040; 87086; 93005; 93010; 99285-25; J1644

== ENCOUNTER 2016-06-05 20:31 | Emergency (ER) | payer OTHER ==
[2016-06-05 20:38] VITALS: BMI 35.9
[2016-06-05] MEDS ORDERED: KETOROLAC TROMETHAMINE 30 MG/1 ML VIAL IVPUSH ONE (21:05)
[2016-06-05] MEDS ORDERED: HYDROmorphone HCL CARPU-JECT 1 MG/1 ML DISP.SYRIN IVPB ONE (21:05)
[2016-06-05] MEDS ORDERED: SODIUM CHLORIDE 1,000 ML IV STA (21:05)
[2016-06-05] MEDS ORDERED: HYDROmorphone HCL CARPU-JECT 1 MG/1 ML DISP.SYRIN ONE (21:09)
[2016-06-05] MEDS ORDERED: KETOROLAC TROMETHAMINE 30 MG/1 ML VIAL ONE (21:09)
[2016-06-05 21:43] LABS: BASOPHIL 0.5 % (0-2.0); EOSINOPHIL 9.3 % (0-4.5); MCH 26.8 pg (25.7-33.7); MCHC 32.8 g/dl (32.0-35.9); MEAN CELL VOLUME 81.9 fl (80-96); MEAN PLT VOLUME 8.1 fl (7.5-11.1); NEUTROPHILS 62.8 % (42.8-82.8); PLATELET COUNT 241 K/MM3 (134-434); RDW 13.9 % (11.9-15.9); WHITE BLOOD COUNT 15.6 K/mm3 (4.0-10.0)
[2016-06-05 21:50] LABS: URINE APPEARANCE CLEAR; URINE BILIRUBIN NEGATIVE (NEGATIVE); URINE COLOR STRAW; URINE GLUCOSE (UA) NEGATIVE (NEGATIVE); URINE KETONE TRACE (NEGATIVE); URINE LEUK ESTERASE NEGATIVE (NEGATIVE); URINE NITRITE NEGATIVE (NEGATIVE); URINE PROTEIN NEGATIVE (NEGATIVE); URINE UROBILINOGEN NEGATIVE E.U./dl (0.2-1.0)
[2016-06-05 21:55] LABS: URINE BLOOD 3+ (NEGATIVE)
--- NOTE | 2016-06-05 21:56 | PDOC ---
History of Present Illness - History of Present Illness Initial Comments: 06/05/16 22:03 Patient is a 45 year old male with significant medical hx of nephrolithiasis (s/ p lithotripsy x 3) who is presenting to the ED with right flank pain. Patient was admitted on 06/03/16 for kidney stone which did not pass during admission. The patient was discharged earlier today on percocet. He is returning to the ED tonight alice persistence of symptoms. Denies fever, chills, nausea, vomiting, abdominal pain, hematuria, and diarrhea. <Stacie Kidd - Last Filed: 06/05/16 22:03> - General History Source: Patient Exam Limitations: No Limitations <Marc Cazares - Last Filed: 06/06/16 00:20> - General Chief Complaint: Pain, Acute Stated Complaint: BACK PAIN Time Seen by Provider: 06/05/16 21:00 Past History <Stacie Kidd - Last Filed: 06/05/16 22:03> - Past Medical History Disorders: Yes (renal stones) - Psycho/Social/Smoking Cessation Hx Suicidal Ideation: No Smoking History: Never smoked <Marc Cazares - Last Filed: 06/06/16 00:20> - Past Medical History Allergies/Adverse Reactions: Allergies Allergy/AdvReac Type Severity Reaction Status Date / Time No Known Allergies Allergy Verified 06/05/16 20:36 Home Medications: Ambulatory Orders Metformin HCl [Metformin HCl ER] 500 mg PO DAILY #30 tab.er.24 06/04/16 Tamsulosin HCl [Flomax -] 0.8 mg PO DAILY@0830 #30 cap 06/04/16 Naproxen [Naprosyn -] 500 mg PO BID PRN #20 tablet 06/06/16 Oxycodone HCl/Acetaminophen [Percocet 5-325 mg Tablet] 2 tab PO Q4H PRN #12 tablet MDD 8 06/06/16 Review of Systems - Review of Systems Comments:: 06/05/16 22:03 GENERAL/CONSTITUTIONAL: No fever or chills. No weakness. HEAD, EYES, EARS, NOSE AND THROAT: No change in vision. No ear pain or discharge. No sore throat. CARDIOVASCULAR: No chest pain or shortness of breath. RESPIRATORY: No cough, wheezing, or hemoptysis. GASTROINTESTINAL: No nausea, vomiting, diarrhea or constipation. GENITOURINARY: No dysuria, frequency, or change in urination. MUSCULOSKELETAL: Right flank pain. No joint or muscle swelling or pain. No neck pain. SKIN: No rash NEUROLOGIC: No headache, vertigo, loss of consciousness, or change in strength/ sensation. <BernabeStacie - Last Filed: 06/05/16 22:03> *Physical Exam - Vital Signs Last Vital Signs Temp Pulse Resp BP Pulse Ox 99.2 F 76 20 147/92 98 06/05/16 20:36 06/05/16 20:36 06/05/16 20:36 06/05/16 20:36 06/05/16 20:36 - Physical Exam Comments: 06/05/16 22:04 GENERAL: Uncomfortable appearing. Awake, alert, and fully oriented. HEAD: No signs of trauma EYES: PERRLA, EOMI, sclera anicteric, conjunctiva clear ENT: Auricles normal inspection, hearing grossly normal, nares patent, oropharynx clear without exudates. Moist mucosa NECK: Normal ROM, supple, no lymphadenopathy, JVD, or masses LUNGS: Breath sounds equal, clear to auscultation bilaterally. No wheezes, and no crackles HEART: Regular rate and rhythm, normal S1 and S2, no murmurs, rubs or gallops ABDOMEN: Soft, nontender, normoactive bowel sounds. No guarding, no rebound. No masses EXTREMITIES: Normal range of motion, no edema. No clubbing or cyanosis. No cords, erythema, or tenderness MUSCULOSKELETAL: Right CVA tenderness. NEUROLOGICAL: Cranial nerves II through XII grossly intact. Normal speech, normal gait SKIN: Warm, Dry, normal turgor, no rashes or lesions noted. ENDOCRINE: No increased thirst. No abnormal weight change. HEMATOLOGIC/LYMPHATIC: No anemia, easy bleeding, or history of blood clots. ALLERGIC/IMMUNOLOGIC: No hives or skin allergy. <Stacie Kidd - Last Filed: 06/05/16 22:03> - Vital Signs Last Vital Signs Temp Pulse Resp BP Pulse Ox 99.2 F 76 20 147/92 98 06/05/16 20:36 06/05/16 20:36 06/05/16 20:36 06/05/16 20:36 06/05/16 20:36 <Marc Cazares - Last Filed: 06/06/16 00:20> ED Treatment Course - LABORATORY CBC & Chemistry Diagram: 06/05/16 21:20 06/05/16 21:38 - ADDITIONAL ORDERS Additional order review: Laboratory Results 06/05/16 21:38 Urine Color Straw Urine Appearance Clear Urine pH 6.0 D Ur Specific [place] 1.011 Urine Protein Negative Urine Glucose (UA) Negative Urine Ketones Trace H Urine Blood 3+ H Urine Nitrite Negative Urine Bilirubin Negative Urine Urobilinogen Negative Ur Leukocyte Esterase Negative 06/05/16 21:20 RBC 5.51 MCV 81.9 MCHC 32.8 RDW 13.9 MPV 8.1 Neutrophils % 62.8 Lymphocytes % 19.2 D Monocytes % 8.2 Eosinophils % 9.3 H D Basophils % 0.5 - Medications Given in the ED: ED Medications Discontinued Medications Generic Name Dose Route Start Last Admin Trade Name Freq PRN Reason Stop Dose Admin Hydromorphone HCl 1 mg 06/05/16 21:05 06/05/16 21:37 Dilaudid Injection - IVPB 06/05/16 21:06 1 mg ONCE ONE Administration Ketorolac Tromethamine 30 mg 06/05/16 21:05 06/05/16 21:37 Toradol Injection - IVPUSH 06/05/16 21:06 30 mg ONCE ONE Administration <Stacie Kidd - Last Filed: 06/05/16 22:03> - LABORATORY CBC & Chemistry Diagram: 06/05/16 21:20 06/05/16 21:38 - ADDITIONAL ORDERS Additional order review: Laboratory Results 06/05/16 21:38 Urine Color Straw Urine Appearance Clear Urine pH 6.0 D Ur Specific [place] 1.011 Urine Protein Negative Urine Glucose (UA) Negative Urine Ketones Trace H Urine Blood 3+ H Urine Nitrite Negative Urine Bilirubin Negative Urine Urobilinogen Negative Ur Leukocyte Esterase Negative 06/05/16 21:20 RBC 5.51 MCV 81.9 MCHC 32.8 RDW 13.9 MPV 8.1 Neutrophils % 62.8 Lymphocytes % 19.2 D Monocytes % 8.2 Eosinophils % 9.3 H D Basophils % 0.5 - Medications Given in the ED: ED Medications Discontinued Medications Generic Name Dose Route Start Last Admin Trade Name Freq PRN Reason Stop Dose Admin Hydromorphone HCl 1 mg 06/05/16 21:05 06/05/16 21:37 Dilaudid Injection - IVPB 06/05/16 21:06 1 mg ONCE ONE Administration Ketorolac Tromethamine 30 mg 06/05/16 21:05 06/05/16 21:37 Toradol Injection - IVPUSH 06/05/16 21:06 30 mg ONCE ONE Administration <Marc Cazares - Last Filed: 06/06/16 00:20> Medical Decision Making - Medical Decision Making 06/05/16 21:57 A portion of this note was documented by scribe services under my direction. I have reviewed the details of the note, within reason, and agree with the documentation with the following case summary and management plan written by me. Patient treated in the ED. Nursing notes are reviewed and incorporated into the medical decision-making. Vital signs reviewed. Peripheral IV access obtained by the nurse, laboratory studies are drawn and sent, reviewed and interpreted by myself. Vital Signs Temp Pulse Resp BP Pulse Ox 99.2 F 76 20 147/92 98 06/05/16 20:36 06/05/16 20:36 06/05/16 20:36 06/05/16 20:36 06/05/16 20:36 45-year-old male with history of diabetes, kidney stones presents with recurrence and persistence of right flank pain. Patient denies dysuria or hematuria or fevers. States that he was admitted and discharged today. He had persistence of right flank pain that did not resolve with Percocet home. Upon admission to the hospital on prior visit, patient had a CAT scan performed on June 03 demonstrated a 6 mm small posterior right mid renal stone with mild hydronephrosis. Patient is obviously in pain. We'll need to control pain. We'll touch base with the patient's urologist Dr. Jennings. We'll likely need to admit. Patient was initially scheduled for outpatient lithotripsy in 3 days. 06/06/16 00:[address] Croft. He is aware. States if patient is admitted, will be nutrition consultant. If discharged, his group will see patient as an outpatient. CBC, BMP 06/05/16 21:20 06/05/16 21:38 CMP Sodium 141 mmol/L (136-145) 06/05/16 21:38 Potassium 3.9 mmol/L (3.5-5.1) 06/05/16 21:38 Chloride 103 mmol/L (98-107) 06/05/16 21:38 Carbon Dioxide 28 mmol/L (21-32) 06/05/16 21:38 Anion Gap 10 (8-16) 06/05/16 21:38 BUN 14 mg/dL (7-18) 06/05/16 21:38 Creatinine 1.1 mg/dL (0.7-1.3) D 06/05/16 21:38 Creat Clearance w eGFR > 60 (>60) 06/05/16 21:38 Random Glucose 139 mg/dL (74-106) H 06/05/16 21:38 Calcium 8.8 mg/dL (8.5-10.1) 06/05/16 21:38 Total Bilirubin 0.4 mg/dL (0.2-1.0) 06/05/16 21:38 AST 20 U/L (15-37) 06/05/16 21:38 ALT 36 U/L (12-78) 06/05/16 21:38 Alkaline Phosphatase 79 U/L (45-117) 06/05/16 21:38 Total Protein 7.4 g/dl (6.4-8.2) 06/05/16 21:38 Albumin 3.9 g/dl (3.4-5.0) 06/05/16 21:38 Urine Test Results Urine Color Straw 06/05/16 21:38 Urine Appearance Clear 06/05/16 21:38 Urine pH 6.0 (5.0-8.0) D 06/05/16 21:38 Ur Specific [place] 1.011 (1.001-1.035) 06/05/16 21:38 Urine Protein Negative (NEGATIVE) 06/05/16 21:38 Urine Glucose (UA) Negative (NEGATIVE) 06/05/16 21:38 Urine Ketones Trace (NEGATIVE) H 06/05/16 21:38 Urine Blood 3+ (NEGATIVE) H 06/05/16 21:38 Urine Nitrite Negative (NEGATIVE) 06/05/16 21:38 Urine Bilirubin Negative (NEGATIVE) 06/05/16 21:38 Ur Leukocyte Esterase Negative (NEGATIVE) 06/05/16 21:38 Pt's pain has improved dramatically. It appears that the patient only took 1 tablet of percocet prior to arrival. I instructed the patient that he should take 500 mg naproxen every 12 hours and can use 1 to 2 tabs of percocet every 4 to 6 hours as needed for pain. Patient feels comfortable going home. Will go home with family. I discussed the physical exam findings, ancillary test results and final diagnoses with the patient. I answered all of the patient's questions. The patient was satisfied with the care received and felt comfortable with the discharge plan and treatment plan. The patient will call their primary care physician within 24 hours to arrange follow-up and will return to the Emergency Department with any new, persistant or worsening symptoms. <Marc Cazares - Last Filed: 06/06/16 00:20> *DC/Admit/Observation/Transfer - Attestations Scribe Attestion: 06/05/16 22:05 Documentation prepared by Stacie Kidd, acting as medical device sales representative for Marc Cazares MD. <Stacie Kidd - Last Filed: 06/05/16 22:03> - Discharge Dispostion Admit: No <Marc Cazares - Last Filed: 06/06/16 00:20> Diagnosis at time of Disposition: Renal calculus or stone - Discharge Dispostion Disposition: HOME Condition at time of disposition: Good - Prescriptions Prescriptions: Naproxen [Naprosyn -] 500 mg PO BID PRN #20 tablet PRN Reason: Pain Oxycodone HCl/Acetaminophen [Percocet 5-325 mg Tablet] 2 tab PO Q4H PRN #12 tablet MDD 8 PRN Reason: Pain Level 6-10 - Referrals Referrals: Semaj Johnson [Primary Care Provider] - Ricky Croft MD., MD [Staff Physician] - - Patient Instructions Printed Discharge Instructions: DI for Kidney Stones Additional Instructions: Please take 500 mg naproxen every 12 hours as needed for pain. Take 1 to 2 tablets of percocet every 4 to 6 hours as needed for pain. Please follow up with your urologist.
[2016-06-05 22:08] LABS: ALBUMIN 3.9 g/dl (3.4-5.0); ALK PHOS 79 U/L (45-117); ANION GAP 10 (8-16); BILIRUBIN,TOTAL 0.4 mg/dL (0.2-1.0); CALCIUM 8.8 mg/dL (8.5-10.1); CO2 28 mmol/L (21-32); CREATININE 1.1 mg/dL (0.7-1.3); GLUCOSE,RANDOM 139 mg/dL (74-106); SGOT/AST 20 U/L (15-37); SGPT/ALT 36 U/L (12-78); TOT PROT 7.4 g/dl (6.4-8.2)
[2016-06-06 00:05] VITALS: BP 141/95; PULSE 72; TEMP 98.2
== END 2016-06-06 00:29 | disposition home or self-care (01) ==
LOC: JER 20:31
PROC: 3E033NZ Introduction of Analgesics, Hypnotics, Sedatives into Peripheral Vein, Percutaneous Approach (ICD-10-PCS; principal; 2016-06-05)
PROC: 3E0333Z Introduction of Anti-inflammatory into Peripheral Vein, Percutaneous Approach (ICD-10-PCS; 2016-06-05)
DX: N20.0 Calculus of kidney (principal); Z87.442 Personal history of urinary calculi; E11.9 Type 2 diabetes mellitus without complications; Z79.84 Long term (current) use of oral hypoglycemic drugs
CPT/HCPCS: 36415; 80053; 81003; 81015; 85025; 87086; 96374; 96375; 99285-25

== ENCOUNTER 2016-06-06 09:14 | Inpatient (IN) | payer OTHER ==
[2016-06-06 09:54] LABS: BASOPHIL 0.5 % (0-2.0); MCH 27.3 pg (25.7-33.7); MCHC 33.1 g/dl (32.0-35.9); MEAN CELL VOLUME 82.7 fl (80-96); MEAN PLT VOLUME 7.9 fl (7.5-11.1); NEUTROPHILS 71.5 % (42.8-82.8); PLATELET COUNT 233 K/MM3 (134-434); RDW 14.1 % (11.9-15.9); WHITE BLOOD COUNT 15.3 K/mm3 (4.0-10.0)
[2016-06-06 09:57] LABS: URINE APPEARANCE CLEAR; URINE BILIRUBIN NEGATIVE (NEGATIVE); URINE BLOOD NEGATIVE (NEGATIVE); URINE COLOR STRAW; URINE GLUCOSE (UA) 1+ (NEGATIVE); URINE KETONE 1+ (NEGATIVE); URINE LEUK ESTERASE NEGATIVE (NEGATIVE); URINE NITRITE NEGATIVE (NEGATIVE); URINE PROTEIN NEGATIVE (NEGATIVE); URINE UROBILINOGEN NEGATIVE E.U./dl (0.2-1.0)
[2016-06-06] MEDS ORDERED: KETOROLAC TROMETHAMINE 30 MG/1 ML VIAL IVPUSH ONE ×2 (10:04→12:00)
[2016-06-06] MEDS ORDERED: KETOROLAC TROMETHAMINE 30 MG/1 ML VIAL ONE (10:05)
[2016-06-06] MEDS ORDERED: SODIUM CHLORIDE 1,000 ML IV ONE (10:07)
[2016-06-06] MEDS ORDERED: morphine CARPU-JECT 4 MG/1 ML DISP.SYRIN IVPUSH ONE (10:07)
[2016-06-06] MEDS ORDERED: morphine CARPU-JECT 2 MG/1 ML DISP.SYRIN ONE (10:07)
[2016-06-06] MEDS ORDERED: morphine CARPU-JECT 4 MG/1 ML DISP.SYRIN ONE (10:07)
[2016-06-06 10:15] LABS: ALBUMIN 3.9 g/dl (3.4-5.0); ALK PHOS 82 U/L (45-117); ANION GAP 10 (8-16); BILIRUBIN,TOTAL 0.6 mg/dL (0.2-1.0); CALCIUM 8.6 mg/dL (8.5-10.1); CO2 27 mmol/L (21-32); CREATININE 1.1 mg/dL (0.7-1.3); GLUCOSE,RANDOM 143 mg/dL (74-106); SGOT/AST 18 U/L (15-37); SGPT/ALT 36 U/L (12-78); TOT PROT 7.2 g/dl (6.4-8.2)
--- NOTE | 2016-06-06 10:46 | PDOC ---
History of Present Illness - General History Source: Patient - History of Present Illness Timing/Duration: reports: constant Quality: reports: severe Pain Radiation: reports: flank <Tawnya GomezParveen - Last Filed: 06/06/16 11:21> <Ky Morales - Last Filed: 06/07/16 09:10> - General Chief Complaint: Pain Stated Complaint: BACK PAIN Time Seen by Provider: 06/06/16 09:23 Past History - Past Medical History Disorders: Yes (renal stones) - Psycho/Social/Smoking Cessation Hx Anxiety: No Suicidal Ideation: No Smoking History: Never smoked Hx Alcohol Use: Yes (SOCIAL) Drug/Substance Use Hx: No Substance Use Type: None <JasonJez - Last Filed: 06/06/16 11:21> <Ky Morales - Last Filed: 06/07/16 09:10> - Past Medical History Allergies/Adverse Reactions: Allergies Allergy/AdvReac Type Severity Reaction Status Date / Time No Known Allergies Allergy Verified 06/06/16 09:20 Home Medications: Ambulatory Orders Metformin HCl [Metformin HCl ER] 500 mg PO DAILY #30 tab.er.24 06/04/16 Tamsulosin HCl [Flomax -] 0.8 mg PO DAILY@0830 #30 cap 06/04/16 Naproxen [Naprosyn -] 500 mg PO BID PRN #20 tablet 06/06/16 Oxycodone HCl/Acetaminophen [Percocet 5-325 mg Tablet] 2 tab PO Q4H PRN #12 tablet MDD 8 06/06/16 Review of Systems - Review of Systems Constitutional: No: Chills, Fever ABD/GI: No: Nausea, Vomiting : Yes: Flank Pain. No: Dysuria, Hematuria <Tawnya GomezParveen - Last Filed: 06/06/16 11:21> *Physical Exam - Vital Signs Last Vital Signs Temp Pulse Resp BP Pulse Ox 98.0 F 71 20 128/89 98 06/06/16 09:17 06/06/16 09:17 06/06/16 09:17 06/06/16 09:17 06/06/16 09:17 - Physical Exam General Appearance: Yes: Appropriately Dressed. No: Apparent Distress HEENT: positive: Normal Voice Neck: positive: Supple Respiratory/Chest: negative: Respiratory Distress Gastrointestinal/Abdominal: positive: Soft. negative: Tender, Distended, Guarding, Rebound Musculoskeletal: positive: CVA Tenderness (R) Integumentary: positive: Dry, Warm Neurologic: positive: Fully Oriented, Alert, Normal Mood/Affect <Jez Gomez - Last Filed: 06/06/16 11:21> - Vital Signs Last Vital Signs Temp Pulse Resp BP Pulse Ox 98.4 F 80 18 132/89 99 06/07/16 06:00 06/07/16 06:00 06/07/16 06:00 06/07/16 06:00 06/06/16 21:00 <Carmen,Ky - Last Filed: 06/07/16 09:10> ED Treatment Course - LABORATORY CBC & Chemistry Diagram: 06/06/16 09:30 06/06/16 09:30 - ADDITIONAL ORDERS Additional order review: Laboratory Results 06/06/16 06/06/16 09:35 09:30 Sodium 139 Potassium 3.8 Chloride 102 Carbon Dioxide 27 Anion Gap 10 BUN 11 D Creatinine 1.1 Creat Clearance w eGFR > 60 Random Glucose 143 H Calcium 8.6 Total Bilirubin 0.6 D AST 18 ALT 36 Alkaline Phosphatase 82 Total Protein 7.2 Albumin 3.9 Urine Color Straw Urine Appearance Clear Urine pH 7.0 Ur Specific [place] 1.014 Urine Protein Negative Urine Glucose (UA) 1+ H Urine Ketones 1+ H Urine Blood Negative Urine Nitrite Negative Urine Bilirubin Negative Urine Urobilinogen Negative Ur Leukocyte Esterase Negative 06/06/16 09:30 RBC 5.47 MCV 82.7 MCHC 33.1 RDW 14.1 MPV 7.9 Neutrophils % 71.5 Lymphocytes % 14.3 D Monocytes % 7.7 Eosinophils % 6.0 H Basophils % 0.5 - Medications Given in the ED: ED Medications Discontinued Medications Generic Name Dose Route Start Last Admin Trade Name Freq PRN Reason Stop Dose Admin Ketorolac Tromethamine 30 mg 06/06/16 10:04 06/06/16 10:16 Toradol Injection - IVPUSH 06/06/16 10:05 Not Given ONCE ONE Morphine Sulfate 6 mg 06/06/16 10:07 06/06/16 10:13 Morphine Injection - IVPUSH 06/06/16 10:08 6 mg ONCE ONE Administration <[place],Tawnya-Carol - Last Filed: 06/06/16 11:21> - LABORATORY CBC & Chemistry Diagram: 06/07/16 07:30 06/07/16 07:30 - ADDITIONAL ORDERS Additional order review: 06/06/16 09:30 RBC 5.47 MCV 82.7 MCHC 33.1 RDW 14.1 MPV 7.9 Neutrophils % 71.5 Lymphocytes % 14.3 D Monocytes % 7.7 Eosinophils % 6.0 H Basophils % 0.5 - Medications Given in the ED: ED Medications Discontinued Medications Generic Name Dose Route Start Last Admin Trade Name Freq PRN Reason Stop Dose Admin Sodium Chloride 1,000 mls @ 1,000 mls/hr 06/06/16 10:07 06/06/16 10:13 Normal Saline - IV 06/06/16 11:06 1,000 mls/hr .Q1H ONE Administration Ceftriaxone Sodium 1 gm/ 50 mls @ 100 mls/hr 06/06/16 11:17 06/06/16 11:53 Dextrose IVPB 06/06/16 11:46 100 mls/hr ONCE ONE Administration Sodium Chloride 1,000 mls @ 1,000 mls/hr 06/06/16 11:26 06/06/16 11:53 Normal Saline - IV 06/06/16 12:25 1,000 mls/hr ASDIR STA Administration Sodium Chloride 1,000 mls @ 125 mls/hr 06/06/16 11:45 06/06/16 22:52 Normal Saline - IV 125 mls/hr ASDIR EBONY Administration Insulin Aspart 1 vial 06/06/16 16:30 06/07/16 06:38 Novolog Vial Sliding Scale - SQ Not Given ACHS EBONY Protocol Ketorolac Tromethamine 30 mg 06/06/16 10:04 06/06/16 10:16 Toradol Injection - IVPUSH 06/06/16 10:05 Not Given ONCE ONE Ketorolac Tromethamine 30 mg 06/06/16 12:00 06/06/16 11:53 Toradol Injection - IVPUSH 06/06/16 12:01 30 mg ONCE ONE Administration Ketorolac Tromethamine 30 mg 06/06/16 18:00 06/07/16 00:31 Toradol Injection - IVPUSH 06/07/16 06:01 30 mg Q6H PRN Administration PAIN Morphine Sulfate 6 mg 06/06/16 10:07 06/06/16 10:13 Morphine Injection - IVPUSH 06/06/16 10:08 6 mg ONCE ONE Administration Morphine Sulfate 2 mg 06/06/16 11:36 06/06/16 15:27 Morphine Injection - IVPUSH 2 mg Q4H PRN Administration PAIN Tamsulosin HCl 0.4 mg 06/06/16 10:49 06/06/16 11:54 Flomax - PO 06/06/16 10:50 Not Given ONCE ONE <Ky Morales - Last Filed: 06/07/16 09:10> Medical Decision Making - Medical Decision Making 06/06/16 10:39 45 yo F, history of kidney stones (status post lithotripsy 3 times), presenting with right flank pain. Patient was initially seen in ED 4 days ago for right flank pain and found to have 6 mm stone to proximal aspect of right ureter with mild hydro. On that visit, had wbc of 18 w/ uti and admitted for sepsis. Was discharged yesterday am but returned to ED last night complaining of persistent pain and was given percocet in ED with significant improvement and was able to be discharged. Patient currently has arrangement for lithotripsy in [address] Bernard of urology, but returns today because pain continues. Percocet and naproxen no longer relieving symptoms as per pt. Denies dysuria, hematuria, nausea, vomiting, fever or chills. Pt appears uncomfortable but stable w/ +R CVAT. Pain control, IVF, flomax and admit for lithotripsy 06/06/16 11:23 Case d/w Dr Croft who rec dose of abx in ED given elevated wbc <Jez Gomez - Last Filed: 06/06/16 11:21> - Medical Decision Making 06/07/16 09:10 The patient was seen and evaluated in conjunction with SAL Gomez under my direct supervision, ancillary studies were reviewed. I independently interviewed and evaluated the patient and I agree with the plan as outlined by SAL Gomez . <Ky Morales - Last Filed: 06/07/16 09:10> *DC/Admit/Observation/Transfer - Discharge Dispostion Admit: Yes <Jez Gomez - Last Filed: 06/06/16 11:21> <Ky Morales - Last Filed: 06/07/16 09:10> Diagnosis at time of Disposition: Renal colic on right side - Discharge Dispostion Condition at time of disposition: Fair - Referrals
[2016-06-06] MEDS ORDERED: TAMSULOSIN HCL 0.4 MG CAP.ER.24H (FP) PO ONE (10:49)
[2016-06-06] MEDS ORDERED: CEFTRIAXONE 1 GM in DEXTROSE 5%-WATER - 50 ML IVPB ONE (11:17)
[2016-06-06] MEDS ORDERED: SODIUM CHLORIDE 1,000 ML IV STA (11:26)
--- NOTE | 2016-06-06 11:35 | HP ---
PCP: None CHIEF COMPLAINT: Right flank/abdominal pain HISTORY OF PRESENT ILLNESS: This is a 45-year-old man who presented to the ER today with right flank and right abdominal pain. He was admitted 06/03-06/05 with the same complaints. He was found to have a 6 mm stone in the proximal right ureter with mild hydronephrosis. He was treated with IV fluid, morphine and Zofran. He was seen by urology and he improved. He was discharged yesterday on Flomax and Percocet, and ESWL was scheduled for 06/08. He returned to the ER last night with increased pain. He was treated with Toradol and Dilaudid and again the pain improved. He was discharged with Naprosyn. He did well for several hours, but then the pain returned. He denies fever, chills, nausea, dysuria, hematuria. PAST MEDICAL HISTORY Kidney stones Type 2 Dm PAST SURGICAL HISTORY Lithotripsy x3 Appendectomy Allergies No Known Allergies Allergy (Verified 06/06/16 09:20) HOME MEDICATIONS 3 Medication Instructions Recorded Metformin HCl [Metformin HCl ER] 500 mg PO DAILY #30 tab.er.24 06/04/16 Tamsulosin HCl [Flomax -] 0.8 mg PO DAILY@0830 #30 cap 06/04/16 Naproxen [Naprosyn -] 500 mg PO BID PRN #20 tablet 06/06/16 Oxycodone HCl/Acetaminophen 2 tab PO Q4H PRN #12 tablet MDD 8 06/06/16 [Percocet 5-325 mg Tablet] Social History: Smoking: Never smoked Alcohol: Denies Drugs: Denies Recent Travel: [place] 1 month ago Family History: Non-contributory REVIEW OF SYSTEMS CONSTITUTIONAL: Absent: fever, chills, diaphoresis, generalized weakness, malaise, loss of appetite, weight change HEENT: Absent: rhinorrhea, nasal congestion, throat pain, throat swelling, difficulty swallowing, mouth swelling, ear pain, eye pain, visual changes CARDIOVASCULAR: Absent: chest pain, syncope, palpitations, lightheadedness, peripheral edema RESPIRATORY: Absent: cough, shortness of breath, dyspnea with exertion, orthopnea, wheezing, stridor, hemoptysis GASTROINTESTINAL: Present: abdominal pain, nausea, vomiting. Absent: abdominal distension, diarrhea, constipation, melena, hematochezia GENITOURINARY: Present: flank pain. Absent: dysuria, frequency, urgency, hesitancy, hematuria MUSCULOSKELETAL: Absent: myalgia, arthralgia, joint swelling, back pain, neck pain SKIN: Absent: rash, itching, pallor HEMATOLOGIC/IMMUNOLOGIC: Absent: easy bleeding, easy bruising, lymphadenopathy, frequent infections ENDOCRINE: Absent: unexplained weight gain, unexplained weight loss, heat intolerance, cold intolerance NEUROLOGIC: Absent: headache, focal weakness, paresthesias, dizziness, unsteady gait, seizure, mental status changes, bladder or bowel incontinence PSYCHIATRIC: Absent: anxiety, depression, suicidal or homicidal ideation, hallucinations. PHYSICAL EXAMINATION Vital Signs - 24 hr 06/06/16 09:17 Temperature 98.0 F Pulse Rate 71 Respiratory 20 Rate Blood Pressure 128/89 O2 Sat by Pulse 98 Oximetry (%) GENERAL: Awake, alert, and fully oriented, in moderate distress. HEAD: Normal with no signs of trauma. EYES: Pupils equal, round and reactive to light, extraocular movements intact, sclerae anicteric, conjunctivae clear. EARS, NOSE, THROAT: Ears normal, nares patent, oropharynx clear without exudates. Moist mucous membranes. NECK: Normal range of motion, supple without lymphadenopathy, JVD, or masses. LUNGS: Breath sounds equal, clear to auscultation bilaterally. No wheezes, and no crackles. No accessory muscle use. HEART: Regular rate and rhythm, normal S1 and S2 without murmur, rub or gallop. ABDOMEN: Obese, soft, (+) right-sided tenderness, not distended, normoactive bowel sounds, no guarding, no rebound, no masses. No hepatomegaly or splenomegaly. MUSCULOSKELETAL: Normal range of motion at all joints. No bony deformities or tenderness. No CVA tenderness. UPPER EXTREMITIES: 2+ pulses, warm, well-perfused. No cyanosis. No clubbing. No peripheral edema. LOWER EXTREMITIES: 2+ pulses, warm, well-perfused. No calf tenderness. No peripheral edema. NEUROLOGICAL: Cranial nerves II-XII intact. Normal speech. Gait not observed. PSYCHIATRIC: Cooperative. Good eye contact. Appropriate mood and affect. SKIN: Warm, dry, normal turgor, no rashes or lesions noted, normal capillary refill. Laboratory Results - last 24 hr 06/06/16 06/06/16 06/06/16 09:30 09:30 09:35 WBC 15.3 H RBC 5.47 Hgb 14.9 Hct 45.2 MCV 82.7 MCHC 33.1 RDW 14.1 Plt Count 233 MPV 7.9 Neutrophils % 71.5 Lymphocytes % 14.3 D Monocytes % 7.7 Eosinophils % 6.0 H Basophils % 0.5 Sodium 139 Potassium 3.8 Chloride 102 Carbon Dioxide 27 Anion Gap 10 BUN 11 D Creatinine 1.1 Creat Clearance w eGFR > 60 Random Glucose 143 H Calcium 8.6 Total Bilirubin 0.6 D AST 18 ALT 36 Alkaline Phosphatase 82 Total Protein 7.2 Albumin 3.9 Urine Color Straw Urine Appearance Clear Urine pH 7.0 Ur Specific [place] 1.014 Urine Protein Negative Urine Glucose (UA) 1+ H Urine Ketones 1+ H Urine Blood Negative Urine Nitrite Negative Urine Bilirubin Negative Urine Urobilinogen Negative Ur Leukocyte Esterase Negative ASSESSMENT/PLAN: This is a 45-year-old man with a history of kidney stones, recently found to have a right ureteral stone and recently diagnosed with type 2 DM, who returns to the ER today with recurrent right flank and right abdominal pain. He is being admitted now for treatment of an emergent condition. 1. Renal colic secondary to obstructing right ureteral stone - IV fluid - Continue Flomax - Toradol as needed for pain - Zofran as needed for nausea - Urology consult for stent vs lithotripsy 2. Leukocytosis - UA shows no evidence of infection - Start Rocephin empirically - Follow-up urine culture 3. Type 2 diabetes mellitus - Hold metformin - Fingersticks with Novolog sliding scale
[2016-06-06] MEDS ORDERED: ONDANSETRON 4 MG/2 ML VIAL IVPB PRN (11:36)
[2016-06-06] MEDS ORDERED: morphine CARPU-JECT 2 MG/1 ML DISP.SYRIN IVPUSH PRN (11:36)
[2016-06-06] MEDS ORDERED: TAMSULOSIN HCL 0.4 MG CAP.ER.24H (FP) ONE (11:41)
[2016-06-06] MEDS ORDERED: CEFTRIAXONE 50 ML ONE (11:42)
[2016-06-06] MEDS: SODIUM CHLORIDE 1,000 ML IV SCH ×3 (12:34→22:52)
[2016-06-06 12:42] VITALS: BMI 35.9
[2016-06-06] MEDS: INSULIN SLIDING SCALE (NOVOLOG) 1 VIAL SQ SCH ×2 (17:32→23:04)
[2016-06-06] MEDS: KETOROLAC TROMETHAMINE 15 MG/ML VIAL IVPUSH PRN (18:03)
[2016-06-07] MEDS: KETOROLAC TROMETHAMINE 15 MG/ML VIAL IVPUSH PRN (00:31)
[2016-06-07] MEDS: INSULIN SLIDING SCALE (NOVOLOG) 1 VIAL SQ SCH ×3 (06:38→17:46)
[2016-06-07 08:03] LABS: BASOPHIL 0.4 % (0-2.0); EOSINOPHIL 11.8 % (0-4.5); MCH 27.2 pg (25.7-33.7); MEAN CELL VOLUME 82.5 fl (80-96); MEAN PLT VOLUME 7.8 fl (7.5-11.1); NEUTROPHILS 60.7 % (42.8-82.8); PLATELET COUNT 226 K/MM3 (134-434); RDW 13.8 % (11.9-15.9); WHITE BLOOD COUNT 13.1 K/mm3 (4.0-10.0)
[2016-06-07 08:24] LABS: CALCIUM 8.4 mg/dL (8.5-10.1); CREATININE 1.2 mg/dL (0.7-1.3)
[2016-06-07] MEDS ORDERED: TAMSULOSIN HCL 0.4 MG CAP.ER.24H (FP) PO SCH (08:30)
--- NOTE | 2016-06-07 09:13 | PN ---
Progress Note (short form) - Note Progress Note: Subjective: no fever or chills , epigastric abd pain like burning . no N?V . no dysuria , did not pass the stone Objective: Vital Signs: Last Vital Signs Temp Pulse Resp BP Pulse Ox 98.4 F 80 18 132/89 99 06/07/16 06:00 06/07/16 06:00 06/07/16 06:00 06/07/16 06:00 06/06/16 21:00 Physical Exam: NAD CV: RRR Lungs :decrease breath sounds at bases Ext : no edema Abd : soft, NT, ND , NL BS. Laboratory Results - last 24 hr 06/06/16 06/06/16 06/06/16 09:30 09:30 09:35 WBC 15.3 H RBC 5.47 Hgb 14.9 Hct 45.2 MCV 82.7 MCHC 33.1 RDW 14.1 Plt Count 233 MPV 7.9 Neutrophils % 71.5 Lymphocytes % 14.3 D Monocytes % 7.7 Eosinophils % 6.0 H Basophils % 0.5 Sodium 139 Potassium 3.8 Chloride 102 Carbon Dioxide 27 Anion Gap 10 BUN 11 D Creatinine 1.1 Creat Clearance w eGFR > 60 POC Glucometer Random Glucose 143 H Calcium 8.6 Total Bilirubin 0.6 D AST 18 ALT 36 Alkaline Phosphatase 82 Total Protein 7.2 Albumin 3.9 Urine Color Straw Urine Appearance Clear Urine pH 7.0 Ur Specific [place] 1.014 Urine Protein Negative Urine Glucose (UA) 1+ H Urine Ketones 1+ H Urine Blood Negative Urine Nitrite Negative Urine Bilirubin Negative Urine Urobilinogen Negative Ur Leukocyte Esterase Negative 06/06/16 06/06/16 06/07/16 17:23 23:01 06:37 WBC RBC Hgb Hct MCV MCHC RDW Plt Count MPV Neutrophils % Lymphocytes % Monocytes % Eosinophils % Basophils % Sodium Potassium Chloride Carbon Dioxide Anion Gap BUN Creatinine Creat Clearance w eGFR POC Glucometer 131 94 121 Random Glucose Calcium Total Bilirubin AST ALT Alkaline Phosphatase Total Protein Albumin Urine Color Urine Appearance Urine pH Ur Specific [place] Urine Protein Urine Glucose (UA) Urine Ketones Urine Blood Urine Nitrite Urine Bilirubin Urine Urobilinogen Ur Leukocyte Esterase 06/07/16 06/07/16 07:30 07:30 WBC 13.1 H RBC 5.07 Hgb 13.8 Hct 41.8 MCV 82.5 MCHC 33.0 RDW 13.8 Plt Count 226 MPV 7.8 Neutrophils % 60.7 Lymphocytes % 18.7 D Monocytes % 8.4 Eosinophils % 11.8 H D Basophils % 0.4 Sodium 139 Potassium 3.8 Chloride 105 Carbon Dioxide 27 Anion Gap 7 L BUN 11 Creatinine 1.2 Creat Clearance w eGFR POC Glucometer Random Glucose 121 H Calcium 8.4 L Total Bilirubin AST ALT Alkaline Phosphatase Total Protein Albumin Urine Color Urine Appearance Urine pH Ur Specific [place] Urine Protein Urine Glucose (UA) Urine Ketones Urine Blood Urine Nitrite Urine Bilirubin Urine Urobilinogen Ur Leukocyte Esterase A/P : 45 y/o man with h/o recurrent nephrolithiasis , who was dc few days ago after being medically managed for R ureter obstructing stone , now comes back with james symptoms of adb pain . 1- R obstructing ureteral stone with mild R hydronephrosis : still did not pass the stone, and need a procedure - decrease IVF to 100 - dc IV abx as no signs of infection await uro eval. - dc morphine and conr toradol - cont flomax - add protonix 2- New onset DM II: A1c 7.3 -hold metformin - SSI here HLOC Visit type - Emergency Visit Emergency Visit: Yes ED Registration Date: 06/06/16 Care time: The patient presented to the Emergency Department on the above date and was hospitalized for further evaluation of their emergent condition. - New Patient This patient is new to me today: No - Critical Care Critical Care patient: No
[2016-06-07] MEDS: SODIUM CHLORIDE 1,000 ML IV SCH ×2 (09:23→21:04)
[2016-06-07] MEDS ORDERED: CEFTRIAXONE 1G/50 ML IVPB SCH (10:00)
[2016-06-07] MEDS ORDERED: PANTOPRAZOLE 40 MG TABLET (FP) PO SCH (10:00)
[2016-06-07] MEDS: KETOROLAC TROMETHAMINE 30 MG/1 ML VIAL IVPUSH PRN (21:17)
[2016-06-08] MEDS: KETOROLAC TROMETHAMINE 30 MG/1 ML VIAL IVPUSH PRN (04:02)
[2016-06-08] MEDS: SODIUM CHLORIDE 1,000 ML IV SCH (06:22)
[2016-06-08 06:33] VITALS: BP 127/68; PULSE 71; TEMP 98.2
[2016-06-08] MEDS: INSULIN SLIDING SCALE (NOVOLOG) 1 VIAL SQ SCH (06:34)
--- NOTE | 2016-06-08 07:38 | PN ---
Teaching Attending Note Name of Resident: Sy Mcpherson ATTENDING PHYSICIAN STATEMENT I saw and evaluated the patient. I reviewed the resident's note and discussed the case with the resident. I agree with the resident's findings and plan as documented. SUBJECTIVE: no abd pain , no flank pain , no feve ror chills , did not pass a stone yet OBJECTIVE: NAD CV : RRR LUngs : CTAB ABd :soft, NT, ND , NL BS . no CVA tenderness ext no edema ASSESSMENT AND PLAN: 45 y/o man with h/o recurrent nephrolithiasis , who was dc few days ago after being medically managed for R ureter obstructing stone , now comes back with james symptoms of adb pain . 1- R obstructing ureteral stone with mild R hydronephrosis : no signs of infection . and sx have resolved but he did not pass the stone will , uro was contacted yesterday, and recommended dc this am as he he has a procedure ( ESWL ) scheduled at another facility. will dc on no pain meds and uro can prescribe if needed after procedure cont flomax 2- New onset DM II: A1c 7.3 -resume metformin dc today
--- NOTE | 2016-06-08 07:40 | DS ---
Physical Exam: SUBJECTIVE: Patient seen and examined at bedside no complaints OBJECTIVE: Vital Signs Period Temp Pulse Resp BP Sys/Laura Pulse Ox Last 24 Hr 97.9 F-98.2 F 71-81 18-20 127-152/68-94 96-96 PHYSICAL EXAM GENERAL: The patient is awake, alert, and fully oriented, in no acute distress. german speaking LUNGS: Breath sounds equal, clear to auscultation bilaterally, no wheezes, no crackles, no accessory muscle use. HEART: Regular rate and rhythm, S1, S2 without murmur, rub or gallop. ABDOMEN: Soft, nontender, nondistended, normoactive bowel sounds. no CVA tenderness NEUROLOGICAL: Cranial nerves II through XII grossly intact. Normal speech, gait not observed. LABS Laboratory Results - last 24 hr 06/07/16 06/07/16 06/07/16 07:30 07:30 11:43 WBC 13.1 H RBC 5.07 Hgb 13.8 Hct 41.8 MCV 82.5 MCHC 33.0 RDW 13.8 Plt Count 226 MPV 7.8 Neutrophils % 60.7 Lymphocytes % 18.7 D Monocytes % 8.4 Eosinophils % 11.8 H D Basophils % 0.4 Sodium 139 Potassium 3.8 Chloride 105 Carbon Dioxide 27 Anion Gap 7 L BUN 11 Creatinine 1.2 POC Glucometer 123 Random Glucose 121 H Calcium 8.4 L 06/07/16 06/08/16 17:30 06:24 WBC RBC Hgb Hct MCV MCHC RDW Plt Count MPV Neutrophils % Lymphocytes % Monocytes % Eosinophils % Basophils % Sodium Potassium Chloride Carbon Dioxide Anion Gap BUN Creatinine POC Glucometer 123 111 Random Glucose Calcium HOSPITAL COURSE: Date of Admission:06/06/16 Date of Discharge: 06/08/16 45M with recurrent kidney and ureteral stones and newly diagnosed diabetes on his last admission 06/03/16, presented to the emergency room 2 days ago after being discharged the day before for a 6mm right obstructing ureteral stone. When patient was discharged on 06/05/16 he did not have any pain and was asymptomatic. He was given follow up with urology for wednesday06/08/16 however the pain became intolerable so he came back tot he ED. He was admitted for IVF and pain control. contacted and patient is set up for ESWL today at [facility]. He was told to stay NPO and to report directly there. Stable to be discharged. Asymptomatic this morning. Minutes to complete discharge: 45 Discharge Summary Reason For Visit: RENAL COLIC ON RIGHT SIDE Current Active Problems Renal colic on right side (Acute) Condition: Improved - Instructions Diet, Activity, Other Instructions: please stay NPO ( nothing per mouth ) even do not take water , and go to [facility] where you are scheduled for ESWL ( removal of your stone ) . Dr. Ellsworth will perform the procedure there . He will prescribe any necessary medications if needed after the procedure Referrals: Semaj Johnson [Primary Care Provider] - Jose Armando Bernard MD [Staff Physician] - Disposition: HOME - Home Medications Comprehensive Discharge Medication List: Ambulatory Orders Metformin HCl [Metformin HCl ER] 500 mg PO DAILY #30 tab.er.24 06/04/16 Tamsulosin HCl [Flomax -] 0.8 mg PO DAILY@0830 #30 cap 06/04/16 Oxycodone HCl/Acetaminophen [Percocet 5-325 mg Tablet] 2 tab PO Q4H PRN #12 tablet MDD 8 06/06/16 This patient is new to me today: Yes Date on this admission: 06/08/16 Emergency Visit: Yes ED Registration Date: 06/06/16 Care time: The patient presented to the Emergency Department on the above date and was hospitalized for further evaluation of their emergent condition. Critical Care patient: No - Discharge Referral Referred to [facility] No
== END 2016-06-08 08:14 | disposition home or self-care (01) | DRG 465 ==
LOC: JER 09:14 → JERBED 11:06 → J5S 12:51
PROVIDERS: ADMIT Internal Medicine; ATTEND Internal Medicine
DX: N13.2 Hydronephrosis with renal and ureteral calculous obstruction (principal); E11.9 Type 2 diabetes mellitus without complications
CPT/HCPCS: 36415; 80048; 80053; 81003; 85025; 99284-25